=== PATIENT | female | born 1955 | race Caucasian/White ===

== ENCOUNTER 2018-11-01 06:05 | Day surgery (SDC) | payer MEDICARE ==
[~2018-11-01] VITALS: Ht 172.7 cm; Wt 67.8 kg
[2018-11-01 06:49] VITALS: BP 159/97
[2018-11-01] MEDS ORDERED: CEFAZOLIN 1,000 MG IM ONE (07:00)
[2018-11-01] MEDS ORDERED: LIDOCAINE-MPF 1%, 2ML ONE (07:12)
[2018-11-01] MEDS ORDERED: PLEASE ENTER ALLERGIES MC SCH (07:30)
[2018-11-01] MEDS ORDERED: SODIUM CHLORIDE 0.9% 1,000 ML IV SCH (07:34)
[2018-11-01] MEDS ORDERED: CEFAZOLIN PMX 1GM/50ML 50 ML IV ONE (08:00)
[2018-11-01] MEDS ORDERED: LIDOCAINE 1%, 20ML ONE (08:40)
[2018-11-01] MEDS ORDERED: MIDAZOLAM 1 MG/ML, 5ML ONE (08:40)
[2018-11-01] MEDS ORDERED: FLUMAZENIL 0.1 MG/1 ML, 5ML ONE (08:40)
[2018-11-01] MEDS ORDERED: NALOXONE 1 MG/ML, 2ML ONE (08:40)
[2018-11-01] MEDS ORDERED: FENTANYL PF 100 MCG/2ML ONE (08:40)
== END 2018-11-01 10:30 | disposition home or self-care (01) ==
LOC: OUT 06:05
PROVIDERS: ATTEND Internal Medicine Hematology & Oncology
DX: Z45.2 Encounter for adjustment and management of vascular access device (principal); C21.0 Malignant neoplasm of anus, unspecified; F41.9 Anxiety disorder, unspecified; I10 Essential (primary) hypertension; F17.210 Nicotine dependence, cigarettes, uncomplicated; Z88.6 Allergy status to analgesic agent; Z88.5 Allergy status to narcotic agent
CPT/HCPCS: 36561; 76937; 77001; 99156; 99157; C1788; J0690; J1642; J2250; J3010; J7030; J2310

== ENCOUNTER 2019-02-26 10:08 | Day surgery (SDC) | payer MEDICARE ==
[~2019-02-26] VITALS: Ht 172.7 cm; Wt 62.0 kg
[2019-02-26] MEDS ORDERED: none per pt (10:55)
[2019-02-26] MEDS ORDERED: CALC60OI2 TP (10:56)
[2019-02-26] MEDS ORDERED: LACTATED RINGERS 1,000 ML IV SCH (10:59)
[2019-02-26 11:15] VITALS: BP 139/86
[2019-02-26] MEDS ORDERED: SODIUM CHLORIDE 0.9% 1,000 ML IV SCH (11:18)
[2019-02-26] MEDS ORDERED: PLEASE ENTER HEIGHT AND WEIGHT MC SCH (11:30)
[2019-02-26] MEDS ORDERED: LIDOCAINE 1%, 20ML ONE (11:55)
[2019-02-26] MEDS ORDERED: MIDAZOLAM 1 MG/ML, 5ML ONE (12:35)
[2019-02-26] MEDS ORDERED: FENTANYL PF 100 MCG/2ML ONE ×2 (12:35)
[2019-02-26] MEDS ORDERED: FLUMAZENIL 0.1 MG/1 ML, 5ML ONE (12:36)
[2019-02-26] MEDS ORDERED: NALOXONE 1 MG/ML, 2ML ONE (12:36)
== END 2019-02-26 14:30 | disposition home or self-care (01) ==
LOC: OUT 10:08
PROVIDERS: ATTEND Internal Medicine Hematology & Oncology
DX: Z45.2 Encounter for adjustment and management of vascular access device (principal); C21.0 Malignant neoplasm of anus, unspecified
CPT/HCPCS: 36590; 99156; 99157; J2250; J3010; J7030; J7120; 77001; J2310